=== PATIENT | female | born 1975 | race Caucasian/White ===

== ENCOUNTER 2017-08-31 12:10 | Inpatient (IN) | payer MEDICAID, OTHER ==
[~2017-08-31] VITALS: Ht 162.6 cm; Wt 92.3 kg
[2017-08-31] MEDS ORDERED: RISP1 PO (12:25)
[2017-08-31 12:33] LABS: BASOPHILS % (AUTO) 1.2 % (0.0-2.0); EOSINOPHILS # (AUTO) 0.03 K/uL (0.00-0.70); EOSINOPHILS % (AUTO) 0.36 % (1.0-6.0); HEMATOCRIT 34.2 % (36-46); HEMOGLOBIN 11.3 g/dL (12.0-16.0); LYMPHOCYTES # (AUTO) 1.5 K/uL (1.0-4.8); LYMPHOCYTES % (AUTO) 18.5 % (22.0-44.0); MEAN CORPUSCULAR HGB CONC 32.9 G/dL (31.0-37.0); MEAN CORPUSCULAR VOLUME 82 fL (80-100); MONOCYTES # (AUTO) 0.3 K/uL (0.1-1.0); NEUTROPHILS # (AUTO) 6.3 K/uL (1.8-7.7); PLATELET COUNT (AUTO) 187 K/uL (150-450); RED BLOOD CELL COUNT(AUTO) 4.17 MIL/uL (4.00-5.20); RED CELL DISTRIBUTION WIDTH 14.4 % (11.5-14.5); WHITE BLOOD COUNT (AUTO) 8.3 K/uL (4.5-11.0)
[2017-08-31 12:38] LABS: ANION GAP 10 mmol/L (8-16); CALCIUM, TOTAL 8.9 mg/dL (8.8-10.5); CARBON DIOXIDE 25 mmol/L (22-29); CHLORIDE 105 mmol/L (98-107); CREATININE 0.77 mg/dL (0.60-1.30); GLOMERULAR FILTR. RATE CALC > 60 mL/min (>60); POTASSIUM 3.3 mmol/L (3.5-5.1); SODIUM SERUM 140 mmol/L (136-145); UREA NITROGEN, BLOOD 3 mg/dL (7-18)
[2017-08-31 12:46] LABS: ALANINE AMINOTRANSFERASE 24 U/L (12-78); ALBUMIN 3.9 g/dL (3.4-5.0); ASPARTATE AMINOTRANSFERASE 20 U/L (15-37); BILIRUBIN,TOTAL 0.3 mg/dL (0.1-1.0); TOTAL PROTEIN, SERUM 7.7 g/dL (6.4-8.2)
[2017-08-31] MEDS ORDERED: RisperiDONE 1 MG TABLET PO ONE (13:15)
[2017-08-31] MEDS ORDERED: LORazepam 1 MG TABLET PO ONE (13:15)
[2017-08-31 15:56] LABS: CHOL/HDL RATIO 3.5 (3.9-5.7)
[2017-08-31 17:44] VITALS: BP 142/96
[2017-08-31] MEDS: RisperiDONE 1 MG TABLET PO SCH (21:17)
[2017-09-01] VITALS: BP 119/84
[2017-09-01] MEDS ORDERED: POTASSIUM CHLORIDE 20 MEQ ER TABLET PO PRN (02:30)
[2017-09-01] MEDS: RisperiDONE 1 MG TABLET PO SCH ×2 (08:15→20:12)
[2017-09-01 08:30] VITALS: BP 100/87
[2017-09-01 16:45] VITALS: BP 124/88
[2017-09-01] MEDS: ZOLPIDEM TARTRATE 10 MG TABLET PO PRN (20:13)
[2017-09-02 02:55] VITALS: BP 153/89
[2017-09-02] MEDS: HALOPERIDOL 5 MG TABLET PO PRN (02:57)
[2017-09-02] MEDS: LORazepam 2 MG TABLET PO PRN (02:57)
[2017-09-02 08:46] VITALS: BP 127/81
[2017-09-02] MEDS: RisperiDONE 1 MG TABLET PO SCH ×2 (10:42→20:10)
[2017-09-02 14:05] VITALS: BP 147/74
[2017-09-02 18:43] VITALS: BP 136/78
[2017-09-02] MEDS: ZOLPIDEM TARTRATE 10 MG TABLET PO PRN (20:10)
[2017-09-02 20:39] LABS: ADD UA MICROSCOPIC NO; APPEARANCE,URINE CLEAR (CLEAR); GLUCOSE, URINE (UA) NEGATIVE (NEGATIVE); KETONES,URINE NEGATIVE (NEGATIVE); LEUKOCYTE ESTERASE ,URINE NEGATIVE (NEGATIVE); OCCULT BLOOD,URINE NEGATIVE (NEGATIVE); PH,URINE 5.5 (5.0-8.0); PROTEIN,URINE NEGATIVE (NEGATIVE)
[2017-09-03 08:30] VITALS: BP 130/77
[2017-09-03] MEDS: RisperiDONE 1 MG TABLET PO SCH ×2 (08:54→20:27)
[2017-09-03 16:44] VITALS: BP 150/95
[2017-09-03] MEDS: ZOLPIDEM TARTRATE 10 MG TABLET PO PRN (20:27)
[2017-09-04 08:46] VITALS: BP 142/73
[2017-09-04] MEDS: RisperiDONE 1 MG TABLET PO SCH ×2 (08:54→20:37)
[2017-09-04] MEDS: HALOPERIDOL 5 MG TABLET PO PRN (08:56)
[2017-09-04] MEDS: LORazepam 2 MG TABLET PO PRN (08:56)
[2017-09-04 16:53] VITALS: BP 135/65
[2017-09-05 08:00] VITALS: BP 123/68
[2017-09-05] MEDS: RisperiDONE 1 MG TABLET PO SCH ×2 (09:11→20:19)
[2017-09-05] MEDS ORDERED: ACETAMINOPHEN 325 MG TABLET PO PRN (10:15)
[2017-09-05] MEDS ORDERED: IBUPROFEN 600 MG TABLET PO PRN (10:15)
[2017-09-05] MEDS: LORazepam 2 MG TABLET PO PRN ×2 (15:00→15:21)
[2017-09-05] MEDS: HALOPERIDOL 5 MG TABLET PO PRN (15:00)
[2017-09-05 17:50] VITALS: BP 140/85
[2017-09-06] MEDS ORDERED: RISP2 PO (08:32)
[2017-09-06 09:05] VITALS: BP 156/82
[2017-09-06] MEDS: LORazepam 2 MG TABLET PO PRN (09:11)
[2017-09-06] MEDS: RisperiDONE 1 MG TABLET PO SCH (09:12)
== END 2017-09-06 14:11 | disposition home or self-care (01) | DRG 750 ==
LOC: EMS 12:13 → 3EI 17:09
DX: F25.1 Schizoaffective disorder, depressive type (principal); E87.6 Hypokalemia; F17.210 Nicotine dependence, cigarettes, uncomplicated; E66.9 Obesity, unspecified; D64.9 Anemia, unspecified; Z88.2 Allergy status to sulfonamides; Z68.34 Body mass index [BMI] 34.0-34.9, adult; Z91.5 Personal history of self-harm; Z72.89 Other problems related to lifestyle
CPT/HCPCS: 84132; 99285; G0480

== ENCOUNTER 2018-09-09 18:14 | Inpatient (IN) | payer MEDICAID, OTHER ==
[~2018-09-09] VITALS: Ht 160 cm; Wt 99.8 kg
[~2018-09-09 18:14] MED LIST: RISP2 PO
[2018-09-09 19:19] LABS: BASOPHILS % (AUTO) 0.9 % (0.0-2.0); EOSINOPHILS % (AUTO) 1.1 % (1.0-6.0); HEMATOCRIT 35.9 % (36-46); HEMOGLOBIN 12.3 g/dL (12.0-16.0); LYMPHOCYTES # (AUTO) 1.7 K/uL (1.0-4.8); LYMPHOCYTES % (AUTO) 21.1 % (22.0-44.0); MEAN CORPUSCULAR HEMOGLOBIN 28.7 pg (26.0-34.0); MEAN CORPUSCULAR HGB CONC 34.4 G/dL (31.0-37.0); MEAN CORPUSCULAR VOLUME 83 fL (80-100); MONOCYTES # (AUTO) 0.5 K/uL (0.1-1.0); MONOCYTES % (AUTO) 5.7 % (2.0-9.0); NEUTROPHILS # (AUTO) 5.8 K/uL (1.8-7.7); NEUTROPHILS % (AUTO) 71.2 % (40.0-70.0); PLATELET COUNT (AUTO) 189 K/uL (150-450); RED BLOOD CELL COUNT(AUTO) 4.31 MIL/uL (4.00-5.20); RED CELL DISTRIBUTION WIDTH 14.2 % (11.5-14.5)
[2018-09-09 19:29] LABS: AMPHET/METH SCREEN,URINE NEGATIVE (NEGATIVE); BARBITURATE SCREEN, URINE NEGATIVE (NEGATIVE); BENZODIAZEPINES SCREEN,URINE NEGATIVE (NEGATIVE); CANNABINOID SCREEN,URINE NEGATIVE (NEGATIVE); COCAINE SCREEN,URINE NEGATIVE (NEGATIVE); METHADONE SCREEN, URINE NEGATIVE (NEGATIVE); OPIATE SCREEN,URINE NEGATIVE (NEGATIVE)
[2018-09-09 19:34] LABS: PHENCYCLIDINE SCREEN,URINE NEGATIVE (NEGATIVE)
[2018-09-09 19:34] LABS: ANION GAP 8 mmol/L (8-16); CALCIUM, TOTAL 8.7 mg/dL (8.8-10.5); CARBON DIOXIDE 28 mmol/L (22-29); CHLORIDE 103 mmol/L (98-107); CREATININE 1.02 mg/dL (0.60-1.30); GLOMERULAR FILTR. RATE CALC 59 mL/min (>60); GLUCOSE,RANDOM 103 mg/dL (70-110); POTASSIUM 3.7 mmol/L (3.5-5.1); SODIUM SERUM 139 mmol/L (136-145); UREA NITROGEN, BLOOD 7 mg/dL (7-18)
[2018-09-09 19:46] LABS: ALANINE AMINOTRANSFERASE 31 U/L (12-78); ALBUMIN 3.9 g/dL (3.4-5.0); ALKALINE PHOSPHATASE 71 U/L (46-116); ASPARTATE AMINOTRANSFERASE 21 U/L (15-37); BILIRUBIN,TOTAL 0.2 mg/dL (0.1-1.0); HCG,QUANTITATIVE < 1 mIU/mL (0-6); TOTAL PROTEIN, SERUM 8.1 g/dL (6.4-8.2)
[2018-09-09] MEDS ORDERED: RisperiDONE 1 MG TABLET PO ONE (20:45)
[2018-09-09] MEDS ORDERED: HALOPERIDOL 5 MG TABLET PO PRN (21:00)
[2018-09-09] MEDS ORDERED: LORazepam 2 MG TABLET PO PRN (21:00)
[2018-09-10 05:14] LABS: CHOL/HDL RATIO 4.2 (3.9-5.7); CHOLESTEROL 203 mg/dL (131-200); HDL CHOLESTEROL 48 mg/dL (40-60); LDL CHOL (CALC.) 133 mg/dL (0-130); TRIGLYCERIDES 108 mg/dL (15-150)
[2018-09-10 14:29] VITALS: BP 119/79
[2018-09-10 16:03] VITALS: BP 119/75
[2018-09-10] MEDS: ZOLPIDEM TARTRATE 10 MG TABLET PO PRN (21:14)
[2018-09-10] MEDS ORDERED: IBUPROFEN 600 MG TABLET PO PRN (22:00)
[2018-09-10] MEDS ORDERED: MAGNESIUM HYDROXIDE SUSPENSION 30 ML UDCUP PO PRN (22:00)
[2018-09-10] MEDS ORDERED: DOCUSATE SODIUM 100 MG CAPSULE PO PRN (22:00)
[2018-09-10] MEDS ORDERED: MAG HYDROX/AL HYDROX/SIMETH ES 30 ML SUSPENSION UDCUP PO PRN (22:00)
[2018-09-10] MEDS ORDERED: BENZOCAINE/MENTHOL LOZENGE MM PRN (22:00)
[2018-09-10] MEDS ORDERED: ONDANSETRON HCL 4 MG TABLET PO PRN (22:00)
[2018-09-10] MEDS ORDERED: CloNIDine HCL 0.1 MG TABLET PO PRN (22:00)
[2018-09-10] MEDS ORDERED: LOPERAMIDE HCL 2 MG CAPSULE PO PRN (22:00)
[2018-09-10] MEDS ORDERED: ACETAMINOPHEN 325 MG TABLET PO PRN (22:00)
[2018-09-10] MEDS ORDERED: BACITRACIN 28.4 GM OINTMENT TP PRN (22:00)
[2018-09-10] MEDS ORDERED: OMEPRAZOLE 20 MG CAPSULE PO PRN (22:00)
[2018-09-10] MEDS ORDERED: PETROLATUM,WHITE 71 GM JELLY TP PRN (22:00)
[2018-09-11 00:52] VITALS: BP 119/77
[2018-09-11 08:20] VITALS: BP 118/60
[2018-09-11 15:00] VITALS: BP 124/90
[2018-09-11 16:11] VITALS: BP 111/67
[2018-09-11] MEDS: DIVALPROEX SODIUM 500 MG DR TABLET PO SCH (16:17)
[2018-09-11] MEDS: RisperiDONE 3 MG TABLET PO SCH (16:17)
[2018-09-11] MEDS: ZOLPIDEM TARTRATE 10 MG TABLET PO PRN (20:11)
[2018-09-12 07:16] VITALS: BP 117/68
[2018-09-12 08:26] VITALS: BP 118/74
[2018-09-12] MEDS: RisperiDONE 3 MG TABLET PO SCH ×2 (08:42→16:46)
[2018-09-12] MEDS: DIVALPROEX SODIUM 500 MG DR TABLET PO SCH ×2 (08:42→16:46)
[2018-09-12 16:10] VITALS: BP 114/70
[2018-09-12] MEDS: ZOLPIDEM TARTRATE 10 MG TABLET PO PRN (20:00)
[2018-09-13 06:36] VITALS: BP 116/68
[2018-09-13 08:03] VITALS: BP 116/74
[2018-09-13] MEDS: DIVALPROEX SODIUM 500 MG DR TABLET PO SCH ×2 (08:30→16:24)
[2018-09-13] MEDS: RisperiDONE 3 MG TABLET PO SCH ×2 (08:30→16:24)
[2018-09-13 16:39] VITALS: BP 119/76
[2018-09-13] MEDS: ZOLPIDEM TARTRATE 10 MG TABLET PO PRN (20:07)
[2018-09-14 06:13] VITALS: BP 117/80
[2018-09-14 08:13] VITALS: BP 111/67
[2018-09-14] MEDS: RisperiDONE 3 MG TABLET PO SCH ×2 (08:46→16:13)
[2018-09-14] MEDS: DIVALPROEX SODIUM 500 MG DR TABLET PO SCH ×2 (08:46→16:13)
[2018-09-14 16:17] VITALS: BP 116/74
[2018-09-14] MEDS: ZOLPIDEM TARTRATE 10 MG TABLET PO PRN (20:13)
[2018-09-15 05:21] VITALS: BP 118/78
[2018-09-15 08:43] VITALS: BP 118/68
[2018-09-15] MEDS ORDERED: RisperiDONE MICROSPHERES 50 MG/2 ML SYRINGE IM SCH (09:00)
[2018-09-15] MEDS: RisperiDONE 3 MG TABLET PO SCH ×2 (09:22→16:17)
[2018-09-15] MEDS: DIVALPROEX SODIUM 500 MG DR TABLET PO SCH ×2 (09:22→16:17)
[2018-09-15 16:03] VITALS: BP 111/70
[2018-09-15] MEDS ORDERED: DIVA-78 PO (19:14)
[2018-09-15] MEDS ORDERED: RISP3 PO (19:14)
[2018-09-15] MEDS ORDERED: RISPC50 IM (19:14)
[2018-09-15] MEDS: ZOLPIDEM TARTRATE 10 MG TABLET PO PRN (20:24)
[2018-09-16 01:05] VITALS: BP 110/67
[2018-09-16 08:07] VITALS: BP 122/69
[2018-09-16] MEDS: RisperiDONE 3 MG TABLET PO SCH (08:56)
[2018-09-16] MEDS: DIVALPROEX SODIUM 500 MG DR TABLET PO SCH (08:56)
== END 2018-09-16 13:00 | disposition home or self-care (01) | DRG 750 ==
LOC: EMS 18:15 → B2S 09-10 11:58
PROVIDERS: ADMIT Psychiatry & Neurology Psychiatry; ATTEND Psychiatry & Neurology Psychiatry
DX: F25.9 Schizoaffective disorder, unspecified (principal); R45.851 Suicidal ideations; E83.51 Hypocalcemia; F41.9 Anxiety disorder, unspecified; K59.00 Constipation, unspecified; G47.00 Insomnia, unspecified; F17.210 Nicotine dependence, cigarettes, uncomplicated; E78.00 Pure hypercholesterolemia, unspecified; F10.10 Alcohol abuse, uncomplicated; Y90.9 Presence of alcohol in blood, level not specified; F31.9 Bipolar disorder, unspecified; Z71.6 Tobacco abuse counseling; Z71.41 Alcohol abuse counseling and surveillance of alcoholic; Z88.1 Allergy status to other antibiotic agents; Z56.0 Unemployment, unspecified; Z88.8 Allergy status to other drugs, medicaments and biological substances
CPT/HCPCS: 87081; G0480; J2794

== ENCOUNTER 2019-03-17 13:15 | Inpatient (IN) | payer MEDICAID, OTHER ==
[~2019-03-17] VITALS: Ht 162.6 cm; Wt 105.1 kg
[~2019-03-17 13:15] MED LIST changes: +DIVA-78 PO; -RISP2 PO; +RISP3 PO; +RISPC50 IM
[2019-03-17] MEDS ORDERED: LORazepam 2 MG TABLET PO ONE (14:15)
[2019-03-17] MEDS ORDERED: HALOPERIDOL 5 MG TABLET PO ONE (14:15)
[2019-03-17 14:20] LABS: EOSINOPHILS % (AUTO) 0.6 % (1.0-6.0); HEMATOCRIT 41.5 % (36-46); HEMOGLOBIN 14.1 g/dL (12.0-16.0); LYMPHOCYTES # (AUTO) 1.8 K/uL (1.0-4.8); LYMPHOCYTES % (AUTO) 18.4 % (22.0-44.0); MEAN CORPUSCULAR HEMOGLOBIN 28.9 pg (26.0-34.0); MEAN CORPUSCULAR HGB CONC 33.9 G/dL (31.0-37.0); MEAN CORPUSCULAR VOLUME 85 fL (80-100); MONOCYTES # (AUTO) 0.6 K/uL (0.1-1.0); MONOCYTES % (AUTO) 5.6 % (2.0-9.0); NEUTROPHILS # (AUTO) 7.4 K/uL (1.8-7.7); NEUTROPHILS % (AUTO) 74.4 % (40.0-70.0); PLATELET COUNT (AUTO) 206 K/uL (150-450); RED BLOOD CELL COUNT(AUTO) 4.87 MIL/uL (4.00-5.20); RED CELL DISTRIBUTION WIDTH 13.8 % (11.5-14.5)
[2019-03-17 14:51] LABS: ANION GAP 14 mmol/L (8-16); CALCIUM, TOTAL 9.2 mg/dL (8.8-10.5); CARBON DIOXIDE 23 mmol/L (22-29); CHLORIDE 100 mmol/L (98-107); GLOMERULAR FILTR. RATE CALC > 60 mL/min (>60); GLUCOSE,RANDOM 102 mg/dL (70-110); POTASSIUM 3.8 mmol/L (3.5-5.1); SODIUM SERUM 137 mmol/L (136-145); UREA NITROGEN, BLOOD 7 mg/dL (7-18)
[2019-03-17 14:58] LABS: ALANINE AMINOTRANSFERASE 22 U/L (12-78); ALBUMIN 4.4 g/dL (3.4-5.0); ALKALINE PHOSPHATASE 81 U/L (46-116); ASPARTATE AMINOTRANSFERASE 16 U/L (15-37); BILIRUBIN,TOTAL 0.5 mg/dL (0.1-1.0); TOTAL PROTEIN, SERUM 8.9 g/dL (6.4-8.2)
[2019-03-17 15:50] LABS: VALPROIC ACID 3 mcg/mL (50-100)
[2019-03-17] MEDS ORDERED: LORazepam 2 MG TABLET PO PRN (16:00)
[2019-03-17] MEDS ORDERED: HALOPERIDOL 5 MG TABLET PO PRN (16:00)
[2019-03-17 18:09] LABS: APPEARANCE,URINE CLOUDY (CLEAR); BILIRUBIN,URINE NEGATIVE (NEGATIVE); GLUCOSE, URINE (UA) NEGATIVE (NEGATIVE); KETONES,URINE 40 mg/dL (NEGATIVE); LEUKOCYTE ESTERASE ,URINE NEGATIVE (NEGATIVE); NITRATE,URINE NEGATIVE (NEGATIVE); OCCULT BLOOD,URINE NEGATIVE (NEGATIVE); PH,URINE 5.5 (5.0-8.0); PROTEIN,URINE TRACE (NEGATIVE); UROBILINOGEN,URINE 0.2 mg/dL (<=1.0)
[2019-03-17 18:14] LABS: AMPHET/METH SCREEN,URINE NEGATIVE (NEGATIVE); BARBITURATE SCREEN, URINE NEGATIVE (NEGATIVE); BENZODIAZEPINES SCREEN,URINE NEGATIVE (NEGATIVE); CANNABINOID SCREEN,URINE NEGATIVE (NEGATIVE); COCAINE SCREEN,URINE NEGATIVE (NEGATIVE); METHADONE SCREEN, URINE NEGATIVE (NEGATIVE); OPIATE SCREEN,URINE NEGATIVE (NEGATIVE); PHENCYCLIDINE SCREEN,URINE NEGATIVE (NEGATIVE)
[2019-03-17] MEDS ORDERED: PNEUMOCOCCAL VACCINE POLYVALENT 0.5 ML VIAL [PPSV23] IM ONE (19:30)
[2019-03-17 19:50] VITALS: BP 105/78
[2019-03-18 05:56] VITALS: BP 136/69
[2019-03-18] MEDS ORDERED: BENZOCAINE/MENTHOL LOZENGE MM PRN (06:00)
[2019-03-18] MEDS ORDERED: CloNIDine HCL 0.1 MG TABLET PO PRN (06:00)
[2019-03-18] MEDS ORDERED: ACETAMINOPHEN 325 MG TABLET PO PRN (06:00)
[2019-03-18] MEDS ORDERED: ONDANSETRON HCL 4 MG TABLET PO PRN (06:00)
[2019-03-18] MEDS ORDERED: PETROLATUM,WHITE 28 GM JELLY TP PRN (06:00)
[2019-03-18] MEDS ORDERED: MAGNESIUM HYDROXIDE SUSPENSION 30 ML UDCUP PO PRN (06:00)
[2019-03-18] MEDS ORDERED: MAG HYDROX/AL HYDROX/SIMETH ES 30 ML SUSPENSION UDCUP PO PRN (06:00)
[2019-03-18] MEDS ORDERED: LOPERAMIDE HCL 2 MG CAPSULE PO PRN (06:00)
[2019-03-18] MEDS ORDERED: BACITRACIN 28.4 GM OINTMENT TP PRN (06:00)
[2019-03-18] MEDS: DOCUSATE SODIUM 100 MG CAPSULE PO SCH (08:31)
[2019-03-18] MEDS: OMEPRAZOLE 20 MG CAPSULE PO SCH (08:31)
[2019-03-18] MEDS: RisperiDONE 3 MG TABLET PO SCH ×2 (08:31→17:23)
[2019-03-18] MEDS: DIVALPROEX SODIUM 500 MG DR TABLET PO SCH ×2 (08:31→17:23)
[2019-03-18 08:37] VITALS: BP 91/52
[2019-03-18 09:00] LABS: CHOL/HDL RATIO 5.4 (3.9-5.7)
[2019-03-18 16:10] VITALS: BP 135/77
[2019-03-18] MEDS: IBUPROFEN 600 MG TABLET PO PRN (18:11)
[2019-03-18] MEDS: ZOLPIDEM TARTRATE 10 MG TABLET PO PRN (22:24)
[2019-03-19 00:44] VITALS: BP 95/61
[2019-03-19 08:59] VITALS: BP 103/69
[2019-03-19] MEDS: DIVALPROEX SODIUM 500 MG DR TABLET PO SCH ×2 (09:17→16:41)
[2019-03-19] MEDS: RisperiDONE 3 MG TABLET PO SCH ×2 (09:17→16:41)
[2019-03-19] MEDS: OMEPRAZOLE 20 MG CAPSULE PO SCH (09:17)
[2019-03-19] MEDS: DOCUSATE SODIUM 100 MG CAPSULE PO SCH (09:17)
[2019-03-19 14:21] VITALS: BP 112/72
[2019-03-19] MEDS: IBUPROFEN 600 MG TABLET PO PRN (14:22)
[2019-03-19 16:48] VITALS: BP 108/78
[2019-03-20 05:52] VITALS: BP 111/75
[2019-03-20 08:00] VITALS: BP 139/69
[2019-03-20] MEDS: RisperiDONE 3 MG TABLET PO SCH ×2 (09:04→16:17)
[2019-03-20] MEDS: DIVALPROEX SODIUM 500 MG DR TABLET PO SCH ×2 (09:04→16:16)
[2019-03-20] MEDS: OMEPRAZOLE 20 MG CAPSULE PO SCH (09:05)
[2019-03-20] MEDS: DOCUSATE SODIUM 100 MG CAPSULE PO SCH (09:05)
[2019-03-20 16:21] VITALS: BP 110/70
[2019-03-20] MEDS ORDERED: LORATADINE 10 MG TABLET PO PRN (19:15)
[2019-03-20] MEDS: ZOLPIDEM TARTRATE 10 MG TABLET PO PRN (22:47)
[2019-03-21 05:10] VITALS: BP 118/76
[2019-03-21 08:35] VITALS: BP 124/63
[2019-03-21] MEDS: OMEPRAZOLE 20 MG CAPSULE PO SCH (08:45)
[2019-03-21] MEDS: RisperiDONE 3 MG TABLET PO SCH (08:45)
[2019-03-21] MEDS: DOCUSATE SODIUM 100 MG CAPSULE PO SCH (08:45)
[2019-03-21] MEDS: DIVALPROEX SODIUM 500 MG DR TABLET PO SCH ×2 (08:45→16:07)
[2019-03-21 16:07] VITALS: BP 121/68
[2019-03-22 00:11] VITALS: BP 122/86
[2019-03-22] MEDS: IBUPROFEN 600 MG TABLET PO PRN (00:18)
[2019-03-22] MEDS: DOCUSATE SODIUM 100 MG CAPSULE PO SCH (08:48)
[2019-03-22] MEDS: OMEPRAZOLE 20 MG CAPSULE PO SCH (08:48)
[2019-03-22] MEDS: DIVALPROEX SODIUM 500 MG DR TABLET PO SCH ×2 (08:48→16:03)
[2019-03-22 09:32] VITALS: BP 122/66
[2019-03-22 16:45] VITALS: BP 110/72
[2019-03-22] MEDS: ZOLPIDEM TARTRATE 10 MG TABLET PO PRN (20:52)
[2019-03-23 06:48] VITALS: BP 100/60
[2019-03-23] MEDS: DOCUSATE SODIUM 100 MG CAPSULE PO SCH (08:21)
[2019-03-23] MEDS: DIVALPROEX SODIUM 500 MG DR TABLET PO SCH (08:21)
[2019-03-23] MEDS: OMEPRAZOLE 20 MG CAPSULE PO SCH (08:21)
[2019-03-23] MEDS: IBUPROFEN 600 MG TABLET PO PRN (08:29)
[2019-03-23 08:57] VITALS: BP 133/61
== END 2019-03-23 11:35 | disposition home or self-care (01) | DRG 750 ==
LOC: EMS 13:18 → B2S 17:33
PROVIDERS: ADMIT Psychiatry & Neurology Psychiatry; ATTEND Psychiatry & Neurology Psychiatry
DX: F25.0 Schizoaffective disorder, bipolar type (principal); E83.51 Hypocalcemia; E78.00 Pure hypercholesterolemia, unspecified; F17.210 Nicotine dependence, cigarettes, uncomplicated; F41.9 Anxiety disorder, unspecified; G47.00 Insomnia, unspecified; K59.00 Constipation, unspecified; Z71.41 Alcohol abuse counseling and surveillance of alcoholic; Z71.6 Tobacco abuse counseling; Z88.8 Allergy status to other drugs, medicaments and biological substances; Z56.0 Unemployment, unspecified; Z59.0 Homelessness; Z91.14 Patient's other noncompliance with medication regimen; Z88.1 Allergy status to other antibiotic agents
CPT/HCPCS: G0480

== ENCOUNTER 2019-06-12 19:03 | Emergency (ER) | payer MEDICAID, OTHER ==
[~2019-06-12] VITALS: Ht 160 cm; Wt 105.5 kg
[~2019-06-12 19:03] MED LIST changes: -RISPC50 IM
[2019-06-12 20:57] LABS: BASOPHILS % (AUTO) 0.8 % (0.0-2.0); EOSINOPHILS % (AUTO) 0.7 % (1.0-6.0); HEMATOCRIT 40.4 % (36-46); HEMOGLOBIN 13.4 g/dL (12.0-16.0); LYMPHOCYTES % (AUTO) 17.7 % (22.0-44.0); MEAN CORPUSCULAR HEMOGLOBIN 28.2 pg (26.0-34.0); MEAN CORPUSCULAR HGB CONC 33.2 G/dL (31.0-37.0); MEAN CORPUSCULAR VOLUME 85 fL (80-100); MONOCYTES # (AUTO) 0.5 K/uL (0.1-1.0); MONOCYTES % (AUTO) 4.5 % (2.0-9.0); NEUTROPHILS # (AUTO) 8.4 K/uL (1.8-7.7); NEUTROPHILS % (AUTO) 76.3 % (40.0-70.0); PLATELET COUNT (AUTO) 201 K/uL (150-450); RED BLOOD CELL COUNT(AUTO) 4.76 MIL/uL (4.00-5.20); RED CELL DISTRIBUTION WIDTH 14.1 % (11.5-14.5)
[2019-06-12 20:59] LABS: ANION GAP 12 mmol/L (8-16); CALCIUM, TOTAL 9.8 mg/dL (8.8-10.5); CARBON DIOXIDE 24 mmol/L (22-29); CHLORIDE 101 mmol/L (98-107); CREATININE 1.14 mg/dL (0.60-1.30); GLOMERULAR FILTR. RATE CALC 52 mL/min (>60); GLUCOSE,RANDOM 105 mg/dL (70-110); POTASSIUM 3.9 mmol/L (3.5-5.1); SODIUM SERUM 137 mmol/L (136-145); UREA NITROGEN, BLOOD 11 mg/dL (7-18)
[2019-06-12 21:16] LABS: ALANINE AMINOTRANSFERASE 20 U/L (12-78); ALKALINE PHOSPHATASE 81 U/L (46-116); ASPARTATE AMINOTRANSFERASE 18 U/L (15-37); BILIRUBIN,TOTAL 0.5 mg/dL (0.1-1.0); HCG,QUANTITATIVE < 1 mIU/mL (0-6); TOTAL PROTEIN, SERUM 8.6 g/dL (6.4-8.2)
[2019-06-12 21:17] LABS: VALPROIC ACID < 3 mcg/mL (50-100)
[2019-06-13] VITALS: BP 123/97
[2019-06-13 01:39] LABS: AMPHET/METH SCREEN,URINE NEGATIVE (NEGATIVE); BARBITURATE SCREEN, URINE NEGATIVE (NEGATIVE); BENZODIAZEPINES SCREEN,URINE NEGATIVE (NEGATIVE); CANNABINOID SCREEN,URINE NEGATIVE (NEGATIVE); COCAINE SCREEN,URINE NEGATIVE (NEGATIVE); METHADONE SCREEN, URINE NEGATIVE (NEGATIVE); OPIATE SCREEN,URINE NEGATIVE (NEGATIVE); PHENCYCLIDINE SCREEN,URINE NEGATIVE (NEGATIVE)
== END 2019-06-13 02:15 | disposition home or self-care (01) ==
LOC: EMS 19:04
DX: F20.9 Schizophrenia, unspecified (principal); F17.210 Nicotine dependence, cigarettes, uncomplicated; Z88.2 Allergy status to sulfonamides; Z88.8 Allergy status to other drugs, medicaments and biological substances; Z79.899 Other long term (current) drug therapy
CPT/HCPCS: 36415; 80053; 80164; 80307; 84702; 85025; 99284; G0480